=== PATIENT | male | born 1975 | race African-American/Black ===

== ENCOUNTER 2025-05-11 14:01 | Emergency (ER) | payer SELFPAY ==
[~2025-05-11] VITALS: Ht 177.8 cm; Wt 91.0 kg
[2025-05-11 14:05] VITALS: O2SAT 97
[2025-05-11 15:27] LABS: BASOPHILS % 0.7 % (0.0-2.0); EOSINOPHILS % 3.6 % (0.0-5.0); HEMATOCRIT. 41.1 % (42.0-52.0); HEMOGLOBIN. 13.8 g/dL (14.0-18.0); LYMPHOCYTES % 22.2 % (20.0-50.0); MEAN PLATELET VOLUME 9.2 fl (7.4-10.4); MONOCYTES % 11.5 % (2.0-8.0); NEUTROPHILS % 62.0 % (40.0-76.0); PLATELET 189 x1000/uL (130-400); RED BLOOD CELL COUNT 4.91 mill/uL (4.7-6.1); RED CELL DISTRIBUTION WIDTH 14.7 % (11.6-14.6)
[2025-05-11 15:44] LABS: CREATININE 1.0 mg/dL (0.6-1.3)
[2025-05-11 15:45] LABS: ETHANOL BLOOD < 10 mg/dL (<10); UREA NITROGEN BLOOD 9 mg/dL (9-23)
[2025-05-11 15:47] LABS: INR 1.0
[2025-05-11] MEDS: FAMOTIDINE 20MG TABLET PO ONE (16:15)
[2025-05-11] MEDS: PREDNISONE 20MG TABLET PO ONE (16:15)
[2025-05-11] MEDS: MAGNESIUM/ALUMINUM HYDROXIDE/SIMETHICONE 30ML UDC PO ONE (16:15)
[2025-05-11] MEDS: DIPHENHYDRAMINE 25MG CAPSULE PO ONE (16:15)
[2025-05-11 17:08] LABS: TROPONIN I HIGH SENSITIVITY < 4 ng/L (3.0-53)
[2025-05-11] MEDS ORDERED: DIPH25CA83 MT (19:38)
[2025-05-11] MEDS ORDERED: FAMO-135 MT (19:38)
[2025-05-11] MEDS ORDERED: P20 MT (19:38)
[2025-05-11] MEDS: DIPHENHYDRAMINE 25MG CAPSULE PO SCH (20:31)
[2025-05-11] MEDS: FAMOTIDINE 20MG TABLET PO SCH (20:31)
[2025-05-11] MEDS: MAGNESIUM/ALUMINUM HYDROXIDE/SIMETHICONE 30ML UDC PO SCH (20:31)
[2025-05-11] MEDS: PREDNISONE 20MG TABLET PO SCH (20:32)
[2025-05-11 20:33] VITALS: BP 150/102; PULSE 76; RESP 12; TEMP 36.7; O2SAT 99
== END 2025-05-11 20:40 | disposition home or self-care (01) ==
LOC: ER 14:01
DX: R53.1 Weakness (principal); R21 Rash and other nonspecific skin eruption; R07.89 Other chest pain; R51.9 Headache, unspecified; Z79.52 Long term (current) use of systemic steroids
CPT/HCPCS: 80048; 80320; 85025; 85610; 85730; 84484; 36415; 71045; 70450; 93005; 99285; Q0163; J7512; G0480